=== PATIENT | male | born 1945 | race Caucasian/White ===

== ENCOUNTER 2016-12-30 11:51 | Emergency (ER) | payer MEDICARE, BC ==
[~2016-12-30] VITALS: Ht 162.6 cm; Wt 95.5 kg
[~2016-12-30 11:51] MED LIST: ADV25050 IH; ALFU10TA2 PO; ASPI-535 PO; BACL10TA PO; DEXL60CA2 PO; FINA5TAB4 PO; HYDR-3504 PO; INSU100I27 SC; LIRA0.6P SC; LIRA0.6P SQ; LORA-441 PO; LYR75 PO; METF500T4 PO; METO25TA7 PO; NOVO3I SC; PARO25TA11 PO; PIOG30TA26 PO; RAMI5CAP46 PO; SIMV40TA7 PO
[2016-12-30 12:06] VITALS: Ht 162.6 cm; Wt 95.5 kg
[2016-12-30 13:07] LABS: BASOPHILS % 0.7 % (0.0-2.0); EOSINOPHILS # 0.1 10^3/ul (0.0-0.5); EOSINOPHILS % 2.1 % (0.0-7.0); HEMATOCRIT 25.1 % (42.0-52.0); HEMOGLOBIN 7.9 g/dl (14.0-18.0); LYMPHOCYTES # 1.1 10^3/ul (0.8-2.9); LYMPHOCYTES % 24.4 % (15.0-51.0); MEAN CORPUSCULAR HEMOGLOBIN 29.4 pg (29.0-33.0); MEAN CORPUSCULAR HGB CONC 31.5 g/dl (32.0-37.0); MEAN CORPUSCULAR VOLUME 93.3 fl (82.0-101.0); MONOCYTE # 0.3 10^3/ul (0.3-0.9); MONOCYTES % 7.4 % (0.0-11.0); NEUTROPHILS % 65.2 % (39.0-77.0); PLATELET COUNT 157 10^3/UL (140-415); RED BLOOD COUNT 2.69 10^6/ul (4.70-6.10); RED CELL DISTRIBUTION WIDTH 18.2 % (11.5-14.5); WHITE BLOOD COUNT 4.4 10^3/ul (4.8-10.8)
[2016-12-30] MEDS ORDERED: FERR325C PO (13:18)
[2016-12-30 13:22] LABS: ALANINE AMINOTRANSFERASE 21 IU/L (13-69); ALBUMIN 4.3 g/dl (3.3-4.9); ALBUMIN/GLOBULIN RATIO 1.26; ALKALINE PHOSPHATASE 40 IU/L (42-121); ANION GAP 14 (8-16); ASPARTATE AMINO TRANSFERASE 19 IU/L (15-46); BLOOD UREA NITROGEN 30 mg/dl (7-20); CALCIUM 9.3 mg/dl (8.4-10.2); CARBON DIOXIDE 25 mmol/L (21-31); CHLORIDE 105 mmol/L (97-110); GLUCOSE 206 mg/dl (70-220); POTASSIUM 5.1 mmol/L (3.5-5.1); SODIUM 139 mmol/L (135-144); TOTAL PROTEIN 7.7 g/dl (6.1-8.1)
[2016-12-30 13:23] LABS: INR 1.05; PROTIME 13.7 Sec (12.2-14.2); PT RATIO 1.1
--- NOTE | 2016-12-30 13:23 | ERD ---
ER Documentation Chief Complaint Date/Time DATE: 12/30/16 TIME: 13:20 Chief Complaint sent by pmd for anemia HPI 71-year-old male referred to the emergency department by his primary care doctor for evaluation of anemia. Patient has no acute medical complaints at this time. He states that he has had a chronic anemia since surgery for colon cancer. He has required intermittent transfusions. He reports no history of acute blood loss including no melanotic stool or hematemesis. He reports no weakness numbness or other complaints. ROS All systems reviewed and are negative except as per history of present illness. Medications Home Meds Active Scripts Ferrous Sulfate (Iron) 325 Mg Capsule.er, 325 MG PO DAILY, #30 CAP Prov:CARI BARAHONA 12/30/16 Reported Medications Pregabalin* (Lyrica*) 75 Mg Capsule, 75 MG PO DAILY, CAP 09/10/15 Liraglutide (Victoza 2-Trev) 0.6 Mg/0.1 Ml Pen.injctr, 1.2 MG SQ DAILY, SYR 09/10/15 Hydrocodone Bit-Acetaminophen (Hydrocodone-APAP) 10-325MG Tablet, 1 TAB PO Q12, #40 04/27/15 Dexlansoprazole (Dexilant) 60 Mg Cap., 1 CAP PO DAILY, #30 04/27/15 Metoprolol Succinate* (Toprol XL*) 25 Mg Tab.sr.24h, 1 TAB PO DAILY, #30 04/27/15 Alfuzosin Hcl* (Alfuzosin Hcl*) 10 Mg Tab.er.24h, 1 TAB PO, #30 04/27/15 Salmeterol Xinaf/Fluticasone* (Advair*) 250-50 Diskus Inhaler, 1 PUFF IH BID, # 60 04/27/15 Pioglitazone Hcl* (Pioglitazone Hcl*) 30 Mg Tablet, 1 TAB PO DAILY, #30 16 Finasteride* (Finasteride*) 5 Mg Tablet, 1 TAB PO, #30 04/27/15 Simvastatin (Simvastatin) 40 Mg Tablet, 1 TAB PO DAILY, #30 04/27/15 Ramipril (Ramipril) 5 Mg Capsule, 1 CAP PO DAILY, #30 04/27/15 Baclofen* (Baclofen*) 10 Mg Tablet, 3 TAB PO Q8, #90 04/27/15 Liraglutide (Victoza 2-Trev) 0.6 Mg/0.1 Ml Pen.injctr, 1.2 SC DAILY, #6 04/27/15 Insulin Detemir (Levemir Flextouch) 100 Unit/1 Ml Insuln.pen, 6 SC QHS, #15 04/27/15 Insulin Aspart* (Novolog Insulin Pen*) 100 Unit/Ml Soln, 4 SC AC MEALS, #15 04/27/15 Paroxetine Hcl* (Paxil* CR) 25 Mg Tab.sr.24h, 25 MG PO DAILY 05/01/12 Lorazepam* (Ativan*) 0.5 Mg Tablet, 0.5 MG PO DAILY 05/01/12 Aspirin Ec (Aspir 81) 81 Mg Tablet.dr, 81 MG PO DAILY 05/01/12 Metformin* (Glucophage*) 500 Mg Tab, 500 MG PO TID 05/01/12 Allergies Allergies: Coded Allergies: No Known Allergies (Verified Allergy, Mild, 09/11/15) PMhx/Soc History of Surgery: Yes Anesthesia Reaction: No Hx Neurological Disorder: No Hx Respiratory Disorders: Yes (COPD, PNA) Hx Cardiac Disorders: Yes (HTN, CABG 2002, CHF, HYPERCHOLESTOREMIA) Hx Psychiatric Problems: Yes (DEPRESSION) Hx Miscellaneous Medical Probl: No Hx Alcohol Use: Yes (Cognac, whiskey on occassion) Hx Substance Use: No Hx Tobacco Use: Yes Smoking Status: Current every day smoker FmHx Noncontributory for chief complaint Physical Exam Vitals Vital Signs Date Time Temp Pulse Resp B/P Pulse Ox O2 Delivery O2 Flow Rate FiO2 12/30/16 12:06 98.2 78 20 90/40 97 Physical Exam GENERAL: Patient is a pale but nontoxic gentleman in no acute distress HEENT: Pupils equal, round, and reactive to light. EOMI. There is no scleral icterus. NECK: C-spine is soft and supple, there is no meningismus. There is no cervical lymphadenopathy. Patient has an endarterectomy scar LUNGS: Clear to auscultation bilaterally. There are no rales, wheezes or rhonchi. HEART: Regular rate and rhythm, no murmurs, clicks, rubs or gallops. ABDOMEN: Soft, postoperative. Nontender to palpation with no rebound or guarding EXTREMITIES: There is no peripheral cyanosis or edema. No focal swelling or erythema. NEURO: The patient moves all four extremities with 5/5 strength. Cranial nerves II - XII are intact. Normal gait. Alert and oriented SKIN: There is no apparent rash or petechiae. HEME/LYMPHATIC: There is no evidence of excessive bruising or lymphedema. PSYCHIATRIC: The patient does not appear anxious or depressed. Result Diagram: 12/30/16 1250 Results 24 hrs Laboratory Tests Test 12/30/16 12:50 White Blood Count 4.410^3/ul Red Blood Count 2.6910^6/ul Hemoglobin 7.9g/dl Hematocrit 25.1% Mean Corpuscular Volume 93.3fl Mean Corpuscular Hemoglobin 29.4pg Mean Corpuscular Hemoglobin Concent 31.5g/dl Red Cell Distribution Width 18.2% Platelet Count 04424^3/UL Mean Platelet Volume 10.0fl Neutrophils % 65.2% Lymphocytes % 24.4% Monocytes % 7.4% Eosinophils % 2.1% Basophils % 0.7% Nucleated Red Blood Cells % 0.0/100WBC Neutrophils # (Manual) 2.810^3/ul Lymphocytes # 1.110^3/ul Monocytes # 0.310^3/ul Eosinophils # 0.110^3/ul Basophils # 0.010^3/ul Nucleated Red Blood Cells # 0.010^3/ul Procedures/MDM Patient was taken to a room, seen and evaluated. Comfort measures were initiated. Diagnostic tests were ordered and reviewed. REEVALUATION: Patient is remained hemodynamically stable with no evidence of active bleeding MEDICAL DECISION MAKIN-year-old male presents with a chronic anemia. This time, patient has no evidence of symptoms of instability including no chest pain shortness of breath ischemia weakness or other complaints. He is anemic but not to the point that require transfusion in fact we would not suggest transfusion at this time. Patient has been educated, informed appears appropriate for outpatient care. Departure Diagnosis: Primary Impression: Anemia Condition: Stable Patient Instructions: Anemia Additional Instructions: Please see your doctor for a recheck of your blood within 1 week. Return for any problems or concerns CARI BARAHONA Dec 30, 2016 13:23
[2016-12-30 13:24] LABS: PARTIAL THROMBOPLASTIN TIME 30.7 Sec (25.0-35.0)
[2016-12-30 13:34] LABS: TROPONIN-I < 0.012 ng/ml (0.00-0.12)
[2016-12-30 14:28] VITALS: BP 102/47; PULSE 75; RESP 18; TEMP 98.2
== END 2016-12-30 14:29 | disposition home or self-care (01) ==
LOC: E/R 11:51
DX: D64.9 Anemia, unspecified (principal); J44.9 Chronic obstructive pulmonary disease, unspecified; I10 Essential (primary) hypertension; I50.9 Heart failure, unspecified; F17.210 Nicotine dependence, cigarettes, uncomplicated; Z79.4 Long term (current) use of insulin; Z79.84 Long term (current) use of oral hypoglycemic drugs; Z95.1 Presence of aortocoronary bypass graft
CPT/HCPCS: 80053; 84484; 85025; 85610; 85730; 86850; 86870; 86900; 86901; 99283

== ENCOUNTER 2017-03-01 13:03 | Inpatient (IN) | payer MEDICARE, OTHER ==
[~2017-03-01] VITALS: Ht 177.8 cm; Wt 95.2 kg
[~2017-03-01 13:03] MED LIST changes: +FERR325C PO; +METO-335 PO; -METO25TA7 PO
[2017-03-01] MEDS ORDERED: ONDANSETRON 4 MG INJ IV PRN (15:30)
[2017-03-01] MEDS ORDERED: ACETAMINOPHEN 325 MG TAB PO PRN (15:30)
--- NOTE | 2017-03-01 19:18 | ERD ---
ER Documentation Chief Complaint Chief Complaint SENT BY PMD FOR EVAL ON ANEMIA C/O DIZZINESS HPI Patient is a 71-year-old male with coronary disease, hypertension, diabetes, and anemia who presents for passing out. He was sent by Dr. Cuellar for low hemoglobin and syncope. He had a fall yesterday because of it. He passed out again today. Dr. Cuellar was requesting the patient be admitted as he previously was seen in the emergency department approximately 1 month ago and discharged and then fell and sustained a fracture. ROS All systems reviewed and are negative except as per history of present illness. Medications Home Meds Active Scripts Ferrous Sulfate (Iron) 325 Mg Capsule.er, 325 MG PO DAILY, #30 CAP Prov:CARI BARAHONA 12/30/16 Reported Medications Pregabalin* (Lyrica*) 75 Mg Capsule, 75 MG PO DAILY, CAP 09/10/15 Liraglutide (Victoza 2-Trev) 0.6 Mg/0.1 Ml Pen.injctr, 1.2 MG SQ DAILY, SYR 09/10/15 Hydrocodone Bit-Acetaminophen (Hydrocodone-APAP) 10-325MG Tablet, 1 TAB PO Q12, #40 04/27/15 Dexlansoprazole (Dexilant) 60 Mg Cap., 1 CAP PO DAILY, #30 16 Metoprolol Succinate* (Toprol XL*) 25 Mg Tab.sr.24h, 1 TAB PO DAILY, #30 16 Alfuzosin Hcl* (Alfuzosin Hcl*) 10 Mg Tab.er.24h, 1 TAB PO, #30 16 Salmeterol Xinaf/Fluticasone* (Advair*) 250-50 Diskus Inhaler, 1 PUFF IH BID, # 60 04/27/15 Pioglitazone Hcl* (Pioglitazone Hcl*) 30 Mg Tablet, 1 TAB PO DAILY, #30 16 Finasteride* (Finasteride*) 5 Mg Tablet, 1 TAB PO, #30 04/27/15 Simvastatin (Simvastatin) 40 Mg Tablet, 1 TAB PO DAILY, #30 04/27/15 Ramipril (Ramipril) 5 Mg Capsule, 1 CAP PO DAILY, #30 04/27/15 Baclofen* (Baclofen*) 10 Mg Tablet, 3 TAB PO Q8, #90 04/27/15 Liraglutide (Victoza 2-Trev) 0.6 Mg/0.1 Ml Pen.injctr, 1.2 SC DAILY, #6 04/27/15 Insulin Detemir (Levemir Flextouch) 100 Unit/1 Ml Insuln.pen, 6 SC QHS, #15 04/27/15 Insulin Aspart* (Novolog Insulin Pen*) 100 Unit/Ml Soln, 4 SC AC MEALS, #15 04/27/15 Paroxetine Hcl* (Paxil* CR) 25 Mg Tab.sr.24h, 25 MG PO DAILY 05/01/12 Lorazepam* (Ativan*) 0.5 Mg Tablet, 0.5 MG PO DAILY 05/01/12 Aspirin Ec (Aspir 81) 81 Mg Tablet.dr, 81 MG PO DAILY 05/01/12 Metformin* (Glucophage*) 500 Mg Tab, 500 MG PO TID 05/01/12 Allergies Allergies: Coded Allergies: No Known Allergies (Verified Allergy, Mild, 09/11/15) PMhx/Soc History of Surgery: Yes (open heart, partial colectomy) Anesthesia Reaction: No Hx Neurological Disorder: No Hx Respiratory Disorders: Yes (COPD, PNA) Hx Cardiac Disorders: Yes (HTN, CABG 2002, CHF, HYPERCHOLESTOREMIA) Hx Psychiatric Problems: Yes (DEPRESSION) Hx Miscellaneous Medical Probl: Yes (colon cancer) Hx Alcohol Use: Yes (Cognac, whiskey on occassion) Hx Substance Use: No Hx Tobacco Use: Yes Smoking Status: Current every day smoker FmHx Family History: coronary disease Physical Exam Vitals Vital Signs Date Time Temp Pulse Resp B/P Pulse Ox O2 Delivery O2 Flow Rate FiO2 03/01/17 13:06 97.7 68 18 100/52 100 Physical Exam Const: No acute distress Head: Atraumatic Eyes: Normal Conjunctiva ENT: Normal External Ears, Nose and Mouth. Neck: Full range of motion..~ No meningismus. Resp: Clear to auscultation bilaterally Cardio: Regular rate and rhythm, no murmurs Abd: Soft, non tender, non distended. Normal bowel sounds Skin: Pale skin Back: No midline or flank tenderness Ext: No cyanosis, or edema Neur: Awake and alert Psych: Normal Mood and Affect Result Diagram: 03/01/17 1520 03/01/17 1520 Results 24 hrs Laboratory Tests Test 03/01/17 15:20 White Blood Count 5.110^3/ul Red Blood Count 2.6510^6/ul Hemoglobin 7.6g/dl Hematocrit 24.7% Mean Corpuscular Volume 93.2fl Mean Corpuscular Hemoglobin 28.7pg Mean Corpuscular Hemoglobin Concent 30.8g/dl Red Cell Distribution Width 15.1% Platelet Count 76052^3/UL Mean Platelet Volume 9.2fl Neutrophils % 62.8% Lymphocytes % 27.5% Monocytes % 7.1% Eosinophils % 2.0% Basophils % 0.4% Nucleated Red Blood Cells % 0.0/100WBC Neutrophils # 3.210^3/ul Lymphocytes # 1.410^3/ul Monocytes # 0.410^3/ul Eosinophils # 0.110^3/ul Basophils # 0.010^3/ul Nucleated Red Blood Cells # 0.010^3/ul Prothrombin Time 14.9Sec Prothrombin Time Ratio 1.2 INR International Normalized Ratio 1.16 Activated Partial Thromboplast Time 28.9Sec Sodium Level 141mmol/L Potassium Level 4.7mmol/L Chloride Level 105mmol/L Carbon Dioxide Level 28mmol/L Anion Gap 13 Blood Urea Nitrogen 23mg/dl Creatinine 1.06mg/dl Glucose Level 133mg/dl Calcium Level 9.0mg/dl Total Bilirubin 0.0mg/dl Direct Bilirubin 0.00mg/dl Indirect Bilirubin 0.0mg/dl Aspartate Amino Transf (AST/SGOT) 17IU/L Alanine Aminotransferase (ALT/SGPT) 25IU/L Alkaline Phosphatase 43IU/L Troponin I < 0.012ng/ml Total Protein 7.8g/dl Albumin 4.3g/dl Globulin 3.50g/dl Albumin/Globulin Ratio 1.22 Current Medications Medications (Trade) Dose Ordered Sig/Arnav Route PRN Reason Start Time Stop Time Status Last Admin Dose Admin Ondansetron HCl (Zofran Inj) 4 mg ER BRIDGE PRN IV NAUSEA AND/OR VOMITING 03/01/17 15:30 03/02/17 15:29 Acetaminophen (Tylenol Tab) 650 mg ER BRIDGE PRN PO MILD PAIN/FEVER 03/01/17 15:30 03/02/17 15:29 Procedures/MDM EKG read by me: Rate/Rhythm: Regular rate and rhythm at a normal rate Intervals: Normal Impression: No evidence of ischemia or arrhythmia Patient is a 71-year-old male with multiple cardiac risk factors who presents with syncope. He was found to have anemia with a hemoglobin of 7.6. Patient will not be transfused until he gets under 7.0. However I do believe that admission would be appropriate given the syncope, patient's age, and anemia. The patient will be admitted to the care of Dr. Cuellar to a telemetry bed. Departure Diagnosis: Primary Impression: Syncope Syncope type: unspecified Qualified Code: R55 - Syncope, unspecified syncope type Additional Impression: Anemia Anemia type: unspecified type Qualified Code: D64.9 - Anemia, unspecified type Condition: MEENA Mckeon MD Mar 01, 2017 19:18
[2017-03-01 19:45] VITALS: Ht 177.8 cm; Wt 95.2 kg
[2017-03-01 20:00] VITALS: BP 149/68; PULSE 62; RESP 18
[2017-03-01] MEDS ORDERED: ONDANSETRON (ODT) 4 MG TAB ODT ONE (21:24)
[2017-03-01] MEDS ORDERED: GLUCOSE GEL 15 GRAM TUBE PO PRN ×2 (22:00)
[2017-03-01] MEDS ORDERED: GLUCAGON 1 MG INJ IM PRN (22:00)
[2017-03-01] MEDS ORDERED: ACCUCHECK 2 AM XX SCH (22:00)
[2017-03-01] MEDS ORDERED: HYDROCODONE/APAP (10/325) TAB PO PRN (22:00)
[2017-03-01] MEDS ORDERED: GLUCOSE GEL 15 GRAM TUBE BUCCAL PRN (22:00)
[2017-03-01] MEDS ORDERED: DEXTROSE 50% 50 ML SYRINGE IV PRN ×2 (22:00)
[2017-03-01] MEDS: Insulin NOVOLOG SS MODERATE Algorithm (SS with meals and bedtime) SC SCH (22:24)
[2017-03-01] MEDS ORDERED: INSULIN DETEMIR [LEVEMIR] 3ML CART SC SCH (23:00)
[2017-03-01] MEDS ORDERED: ALFUZOSIN (SR) 10 MG TAB PO SCH (23:00)
[2017-03-02] VITALS (8 sets, daily range): BP systolic 122–153; BP diastolic 53–89; PULSE 64–69; RESP 18
[2017-03-02] MEDS ORDERED: FUROSEMIDE 20 MG INJ IV ONE (05:30)
[2017-03-02] MEDS ORDERED: PANTOPRAZOLE (EC) 40 MG TAB PO SCH ×2 (06:00)
--- NOTE | 2017-03-02 07:50 | HP ---
DATE OF ADMISSION: 03/01/2017 History is taken from the patient. CHIEF COMPLAINT: Serial weakness, dizziness, status post recurrent falls. HISTORY OF PRESENT CONDITION: This is a 71-year-old white male with multiple medical problems who was seen in the office about a week ago. The patient was evaluated and found to have H and H in the range of 8/25. The patient did not have such a low H and H for a long time and he is unable to tolerate such low levels. He is sleepy all day. He can't being active, being able to walk, now he is either in the bed or on the couch at home with shortness of breath along with at least, according to the , 3 episodes of falls because he has also a memory problem. The patient had fractured 2 fingers of the left hand during the last fall last month and as an outpatient, iron sulfate along with multivitamins were given without significant improvement of H and H. I have decided to admit the patient to transfuse 2 units of packed RBCs along with GI consultation, with assessing current medication regimen. CURRENT MEDICATIONS: 1. Ecotrin 81 mg daily. 2. Dexilant 6 mg daily. 3. Flomax 0.4 at bedtime. 4. Hydrocodone 10/325 every 24 hours p.r.n. 5. Levemir 6, 8 or 10 units at 11:00 p.m. 6. NovoLog insulin 4 to 6 units with meals. 7. Victoza 1.2 mg daily. 8. Ativan 0.5 q.8 p.r.n. 9. Glucophage 500 q.8. 10. Toprol 25 daily. 11. Paxil 25 daily. 12. Lyrica 75 daily. 13. Ramipril 5 mg daily. 14. Advair 250/50 at bedtime. 15. Zocor 40 at bedtime. ALLERGIES: NOT KNOWN. SOCIAL HISTORY: No history of ETOH use or abuse. No history of illegal drug use or abuse. No smoking. PAST MEDICAL HISTORY: Significant for: 1. Ischemic heart disease/angina, status post CABG, status post PTCA. 2. 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 3. Status post horizontal segmental large colon resection due to adenocarcinoma about 8 months ago at [facility]. 4. Status post repeated falls. 5. Memory impairment. 6. Diabetic neuropathy. 7. Dyslipidemia. 8. BPH. 9. Obesity. 10. Snoring. 11. Peripheral arterial disease. 12. Status post carotid endarterectomy. 13. Anemia of chronic disease. 14. No history of tobacco use. 15. No history of seizure disorder. FAMILY HISTORY: He is the father of 2 children, son 35 years old, practically healthy; daughter is status post gastric sleeve surgery due to obesity with weight loss with anemia and sequelae of the surgery. REVIEW OF SYSTEMS: No fever, no chills. Positive for dizziness, unstable gait. Positive for shortness of breath. Denies chest pain. Positive for palpitations on and off. Positive for falls, denies head trauma. Positive for painful shoulders, painful neck, painful back. Positive for melena with iron sulfate p.o. and without, too. Positive for hemorrhoids, positive for constipation. Positive for nocturia x2 to 3. Positive for difficulty to initiate urination. Positive for painful knees, positive for painful left ring and midfinger with metallic brace with fracture after the fall. Positive for skin itching on and off, positive for pain syndrome. Positive wheezing and cough, currently better controlled. PHYSICAL EXAMINATION: VITAL SIGNS: Weight of patient was not measured. Blood pressure is now in process of measuring, heart rate now is 88, T-maximum 98.2, respiratory rate 18. GENERAL: Well-developed, well-nourished, atraumatic, normocephalic, no signs of abuse. HEENT: Pupils are equal and reactive to light. Extraocular muscles are intact. Status post carotid endarterectomy surgery changes. Mouth mucosa is dry. Positive for dentures. Gag reflex is normal. Pale conjunctivae. Dry lips. Hearing is impaired. Tympanic membranes are sclerotic. NECK: Status post left endarterectomy scar on the left side, posterior carotid bruits bilaterally. Status post midline sternotomy scar, positive for . HEART: Rhythm regular, S1, S2. No S3. Systolic murmur in aortic region. CHEST: Positive for clear to auscultation bilateral lungs. ABDOMEN: Soft, mildly obese, weak abdominal wall. Mildly tender in mid abdominal area, status post left surgical scars. GENITALIA: Within normal limits. RECTAL: Done 2 months ago, positive for BPH related changes. LOWER EXTREMITIES: No edema. Painful, swollen and deformed ring and midfinger of the left hand. NEUROLOGIC: Decreased sensation peripherally to pain touch and vibration equally. No focal deficits. Gait unstable. The patient is getting sleepy during talk. ASSESSMENT AND PLAN: 1. Anemia, most probably gastrointestinal losses. Gastroenterology consultation will be done. Two units of packed red blood cells will be transfused. Latest hemoglobin and hematocrit 12/18. Hospital laboratories are pending. 2. Hypertension. 3. Diabetes type 2. 4. Chronic obstructive pulmonary disease. 5. Dyslipidemia. 6. Low back pain. 7. Status post colonic adenocarcinoma. CA level will be checked. 8. Diabetic neuropathy and nephropathy. 9. Status post syncopal episodes. 10. Memory impairment. 11. Hearing impairment. 12. Osteoarthritis of the knees. 13. Anxiety disorder. Dictated By: YARITZA GARCÍA/ADIEL Conf#: [id number] DID#: [id number] CC: PAPO BENJAMIN MD;*EndCC* MTDD
[2017-03-02] MEDS: Insulin NOVOLOG SS MODERATE Algorithm (SS with meals and bedtime) SC SCH ×2 (08:00→12:00)
[2017-03-02] MEDS ORDERED: Insulin NOVOLOG SS MODERATE Algorithm (SS with meals and bedtime) SC SCH (08:00)
[2017-03-02] MEDS: INSULIN ASPART [NOVOLOG] 3 ML PEN SC SCH ×2 (08:49→12:44)
[2017-03-02] MEDS ORDERED: FINASTERIDE 5 MG TAB PO SCH (09:00)
[2017-03-02] MEDS ORDERED: BENAZEPRIL 20 MG TAB PO SCH (09:00)
[2017-03-02] MEDS ORDERED: METOPROLOL (XL) 25 MG TAB PO SCH (09:00)
[2017-03-02] MEDS ORDERED: SALMETEROL/FLUTICASONE 250/50 INHA INH SCH (09:00)
[2017-03-02] MEDS ORDERED: PAROXETINE (CR) 12.5 MG TAB PO SCH (09:00)
[2017-03-02] MEDS ORDERED: PREGABALIN 75 MG CAP PO SCH (09:00)
[2017-03-02] MEDS ORDERED: ASPIRIN (EC) 81 MG TAB PO SCH (09:00)
[2017-03-02] MEDS ORDERED: ATORVASTATIN 20 MG TAB PO SCH (09:00)
[2017-03-02] MEDS ORDERED: metFORMIN 500 MG TAB PO SCH (09:00)
[2017-03-02] MEDS ORDERED: PIOGLITAZONE 30 MG TAB PO SCH (09:00)
[2017-03-02] MEDS ORDERED: FERROUS SULFATE (EC) 325 MG TAB PO SCH (09:00)
[2017-03-02] MEDS ORDERED: NON-FORMULARY/PATIENT OWN MED (Liraglutide (Victoza 2-Pak) 1.2 MG) XX SCH ×2 (09:00)
[2017-03-02] MEDS ORDERED: LORAZEPAM 0.5 MG TAB PO SCH (09:00)
--- NOTE | 2017-03-02 13:42 | PDOCDIS ---
Discharge Instructions DIAGNOSIS Discharge Diagnosis 1. Anemia, most probably gastrointestinal losses. Gastroenterology consultation will be done. Two units of packed red blood cells will be transfused. Latest hemoglobin and hematocrit 8/25. S/P 2 units of PRBC transfusion. CBC as an outpatient in 5 days. 2. Hypertension. 3. Diabetes type 2. 4. Chronic obstructive pulmonary disease. 5. Dyslipidemia. 6. Low back pain. 7. Status post colonic adenocarcinoma. CA level will be checked. 8. Diabetic neuropathy and nephropathy. 9. Status post syncopal episodes. 10. Memory impairment. 11. Hearing impairment. 12. Osteoarthritis of the knees. 13. Anxiety disorder. CONDITION Patient Condition: Fair HOME CARE INSTRUCTIONS: Diet Instructions: Reduced SodiumSpecial Diet: 1800 Valentin/2gmNA ACTIVITY: Activity Restrictions: Do not Drive Bathing Restrictions: Tub Bath FOLLOW UP/APPOINTMENTS Follow-up Plan 03/06/2017 to . REFERRALS Other Referrals GI in 10 days. SCHOOL/WORK RELEASE May return to School/Work on: Mar 02, 2017 May return to School/Work with: none. YARITZA SANTIAGO MD Mar 02, 2017 13:42
== END 2017-03-02 14:18 | disposition home or self-care (01) | DRG 812 ==
LOC: E/R 13:03 → MS4 17:55
PROVIDERS: ADMIT Internal Medicine; ATTEND Internal Medicine
PROC: 30233N1 Transfusion of Nonautologous Red Blood Cells into Peripheral Vein, Percutaneous Approach (ICD-10-PCS; principal; 2017-03-01)
DX: D64.9 Anemia, unspecified (principal); E11.21 Type 2 diabetes mellitus with diabetic nephropathy; E11.40 Type 2 diabetes mellitus with diabetic neuropathy, unspecified; I10 Essential (primary) hypertension; R55 Syncope and collapse; E11.8 Type 2 diabetes mellitus with unspecified complications; J44.9 Chronic obstructive pulmonary disease, unspecified; E78.5 Hyperlipidemia, unspecified; M54.5 Low back pain; Z85.038 Personal history of other malignant neoplasm of large intestine; H91.90 Unspecified hearing loss, unspecified ear; R41.3 Other amnesia; F41.9 Anxiety disorder, unspecified
CPT/HCPCS: 36415; 36430; 80053; 82962; 84484; 85025; 85610; 85730; 86644; 86850; 86900; 86901; 86920; 93005; J1940; J1815; P9016

== ENCOUNTER 2018-02-16 22:47 | Observation (INO) | END 2018-02-17 14:50 | disposition home or self-care (01) ==